=== PATIENT | male | born 1990 | race Caucasian/White ===

== ENCOUNTER 2020-11-15 12:57 | Emergency (ER) | payer SELFPAY ==
[~2020-11-15] VITALS: Ht 185.4 cm; Wt 83.9 kg
[2020-11-15 12:58] VITALS: BP 115/77
[2020-11-15] MEDS ORDERED: CEPH-588 PO (14:55)
[2020-11-15] MEDS ORDERED: SULF-59 PO (14:55)
[2020-11-15] MEDS ORDERED: NAPR-54 PO (14:55)
[2020-11-15] MEDS ORDERED: KETOROLAC 30 MG/ML VIAL IM ONE (15:00)
--- NOTE | 2020-11-15 15:26 | NUR ---
Patient discharged with v/s stable. Written and verbal after care instructions given and explained. Patient alert, oriented and verbalized understanding of instructions. Ambulatory with steady gait. All questions addressed prior to discharge. ID band removed. Patient advised to follow up with PMD. Rx of CEPHALEXIN, NAPROXEN, BACTRIM given. Patient educated on indication of medication including possible reaction and side effects. Opportunity to ask questions provided and answered.
== END 2020-11-15 15:26 | disposition home or self-care (01) ==
LOC: MED 12:57
DX: L03.116 Cellulitis of left lower limb (principal)
CPT/HCPCS: 96372; 99283; J1885